=== PATIENT | female | born 1990 | race Caucasian/White ===

== ENCOUNTER 2024-05-17 09:42 | Outpatient (OUT) | payer BC, SELFPAY ==
--- NOTE | 2024-05-17 09:49 | US_ITS ---
The [address] [address] Patient Name: MIKE SMILEY MRN: [id number] date: 1990 Sex: F Assigned Patient Location: US Current Patient Location: Accession/Order Number: [id number] Exam Date: 05/17/2024 09:50 Report Date: 05/18/2024 04:49 At the request of: JESSICA SOTELO Procedure: US thyroid EXAMINATION: US thyroid HISTORY: Nontoxic Goiter COMPARISON: No relevant comparison available. FINDINGS: RIGHT LOBE: Residual tissue within right thyroid bed, 1.7 x 0.9 x 0.5 cm. LEFT LOBE: Enlarged lobe with homogeneous echotexture containing a 2.2 cm TR 4 within inferior pole. Lobe size: 6.0 x 2.2 x 1.7 cm. ISTHMUS: Normal size and echotexture. Thickness: 2 mm US/US thyroid IMPRESSION: 1. 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 Ultrasound-guided tissue sampling should be considered. 2. History of right thyroidectomy. There is residual tissue within the thyroid bed, but no appreciable abnormality. 3. No comparison study. Electronically authenticated by: UMA ALICEA Date: 05/18/2024 04:49
== END 2024-05-17 09:43 | disposition home or self-care (01) ==
LOC: US 09:43
PROVIDERS: Family Provider Family Medicine; PCP Family Medicine; Visit Provider Family Medicine
DX: E04.9 Nontoxic goiter, unspecified (principal)
CPT/HCPCS: 76536